=== PATIENT | male | born 1955 | race Caucasian/White ===

== ENCOUNTER → 2019-05-25 | Day surgery (SDC) | payer OTHER ==
[2019-05-20 12:38] LABS: BASOPHILS % 0.5 % (0.0-1.0); EOSINOPHILS # (AUTO) 0.1 (0.0-0.4); EOSINOPHILS % 1.3 % (0.0-6.0); HEMATOCRIT 43.7 % (38.2-49.6); HEMOGLOBIN 14.5 g/dL (14.0-18.0); LYMPHOCYTES # (AUTO) 1.7 (1.0-3.2); LYMPHOCYTES % 27.5 % (18.0-39.1); MEAN CORPUSCULAR HEMOGLOBIN 31.4 pg (28-32); MEAN CORPUSCULAR HGB CONC 33.2 g/dL (31-35); MEAN CORPUSCULAR VOLUME 94.6 fL (81-99); MONOCYTES # (AUTO) 0.7 (0.2-0.8); MONOCYTES % 11.4 % (4.4-11.3); NEUTROPHILS # (AUTO) 3.6 (2.1-6.9); PLATELET COUNT 270 x10e3/uL (140-360); RED BLOOD COUNT 4.62 x10e6/uL (4.3-5.7); RED CELL DISTRIBUTION WIDTH 12.1 % (11.7-14.4)
[2019-05-20 12:52] LABS: INR 0.94; PROTHROMBIN TIME 13.1 seconds (11.9-14.5)
[2019-05-20 13:05] LABS: ALANINE AMINOTRANSFERASE 28 IU/L (0-55); ALBUMIN/GLOBULIN RATIO 1.5 (0.8-2.0); ALKALINE PHOSPHATASE 59 IU/L (40-150); ANION GAP 13.5 mmol/L (8-16); BLOOD UREA NITROGEN 18 mg/dL (7-26); BUN/CREATININE RATIO 18 (6-25); CALCIUM 9.3 mg/dL (8.4-10.2); CARBON DIOXIDE 25 mmol/L (22-29); CHLORIDE 106 mmol/L (98-107); CREATININE, SERUM 0.98 mg/dL (0.72-1.25); EST GLOMERULAR FILTRATION RATE > 60 ML/MIN (60-); GLUCOSE 107 mg/dL (74-118); POTASSIUM 4.5 mmol/L (3.5-5.1); SODIUM 140 mmol/L (136-145)
[~2019-05-25] VITALS: Ht 185.4 cm; Wt 106.6 kg
[2019-05-25] VITALS (10 sets, daily range): BP systolic 108–142; BP diastolic 72–87
[~2019-05-25] MED LIST: CIALIS5 MG PO; FENTANYL CITRATE/PF 100MCG/2 ML INJ ONE; FLUTICASONE PRO16 GM; HEPARIN SOD (PORCINE) 1000 UNIT/ML 30ML ONE; HEPARIN SOD/SOD CHLORIDE 2,000 ML ONE; IOPAMIDOL 370 MG/ML 200 ML INFUS..BTL INJ ONE; LIDOCAINE HCL 2% LOCAL 20 ML VIAL ONE; LISINOPRIL10 MG PO; MIDAZOLAM HCL 2 MG/2 ML VIAL ONE; NAPROXEN500 MG PO; NITROGLYCERIN/D5W 200 MCG/ML 250 ML ONE; NORCO 10-325 T1 EACH PO; PROAIR HFA INH8.5 GM INH; SODIUM CHLORIDE 0.9% 1000ML 1,000 ML ONE; VERAPAMIL HCL 2.5 MG/ML 2 ML VIAL ONE; XARELTO10 MG PO; [UNRECOGNIZED DRUG - OTHER] INH
--- NOTE | 2019-05-25 08:30 | NUR ---
0830am RECEIVING NOTE [employer]PER[employer] RECOVERY DEPT............................................................... Bedside report received from Kavya HERRERA. Identifierx2. Alert oriented and appropriate, PERRLA, respirations even and unlabored to room air. Pulses x4 extremities equal and strong. Pedal pulses PT/DP X4 and marked. Cap fill brisk < 3 sec. Rt TR band ok reduce at 0845am Skin warm and dry integrity appears D/I. IV 20g to left hand presents healthy w/o s/s of infiltration or complaint. Abdomen soft and supple. pt offered toileting, denies need to urinate or defecate. No personal affects with patient. Family at bs. Pt and family verbalizes understanding of POC. Currently w/o complaint of pain or need. ds/rn
--- NOTE | 2019-05-25 08:45 | NUR ---
0845am RADIAL COMPRESSION REMOVAL NOTE: Initial Cuff volume 10 cc 0845 a -2cc Removed No hematoma/bleeding noted with normal neurovascular function. 0900 a-4cc Removed No hematoma/ bleeding noted with normal neurovascular function. 0915 a-4cc Removed No hematoma/bleeding noted with normal neurovascular function. Air removal completed. Stasis achieved sterile 2x2,Tegaderm, Coban dressing No hematoma, bleeding noted with normal neurovascular function. Wrist splint in place. Pt instructed on POC. Ds/Rn
--- NOTE | 2019-05-25 09:15 | NUR ---
0945 am [employer] REPRESENTATIVE RECOVERY DISCHARGE NURSING NOTE Pt meets DC criteria. Rt TR band assessed for s/s of complication and presence of hematoma. Skin warm, dry, no discolor, and pulses present. IV removed from left hAND. Distal tip appears intact. VS WNL. Pt denies pain, sob, or need at this time. Family at BS. Review of discharge paperwork and follow up instructions. verbalized understanding. Pt to wheelchair and transported to front of hospital. Transferred to private vehicle under own strength w/o incident with DC paperwork in hand. - MIREILLE/JAVIER
--- NOTE | 2019-05-25 13:22 | Operative Report ---
DATE OF PROCEDURE: 05/25/2019 SURGEON: Yunior Coles MD INDICATIONS: Coronary artery disease, abnormal stress test with inferior ischemia. PROCEDURES PERFORMED: 1. Left heart catheterization, selective coronary angiography. 2. Deployment of right wrist TR band. COMPLICATIONS: None. RECOMMENDATIONS: Medical therapy. DESCRIPTION OF PROCEDURE: Access was obtained in the right radial artery. A 5-Yi sheath was placed. Coronary angiography demonstrated mild coronary artery disease, 10% to 20% luminal stenosis. No critical stenosis or occlusions were noted. No intervention necessary. LV end-diastolic pressure of 10. No gradient across the aortic valve on pullback. Wire and guide sheath removed. TR band applied. The patient discharged home the same day. Yunior Coles MD [facility]/MODL /[id number]
== END | disposition home or self-care (01) ==
LOC: CATH LAB 06:01
PROVIDERS: ATTEND Internal Medicine Interventional Cardiology
DX: I25.118 Atherosclerotic heart disease of native coronary artery with other forms of angina pectoris (principal); R94.39 Abnormal result of other cardiovascular function study; Z01.812 Encounter for preprocedural laboratory examination; Z79.02 Long term (current) use of antithrombotics/antiplatelets; Z86.718 Personal history of other venous thrombosis and embolism
CPT/HCPCS: 36415; 80053; 85025; 85610; 93458; C1769; C1887; J1644; J2001; J2250; J3010; J7030; Q9967; 99152